=== PATIENT | female | born 1995 | race Hispanic/Latino ===

== ENCOUNTER 2024-06-11 01:53 | Emergency (ER) | payer MEDICAID ==
[~2024-06-11] VITALS: Ht 157.5 cm; Wt 52.2 kg
[2024-06-11 01:53] VITALS: BP 115/68; PULSE 110; RESP 20; TEMP 99.5
[~2024-06-11 01:53] MED LIST: IBUP-2077 PO; PREN1TAB80 PO
== END 2024-06-11 03:06 | disposition home or self-care (01) ==
LOC: EDH 01:53
DX: S93.692A Other sprain of left foot, initial encounter (principal); Z79.899 Other long term (current) drug therapy; W18.39XA Other fall on same level, initial encounter; Y93.89 Activity, other specified; Y92.89 Other specified places as the place of occurrence of the external cause; Y99.8 Other external cause status
CPT/HCPCS: 73610